=== PATIENT | female | born 1985 | race Caucasian/White ===

== ENCOUNTER 2021-12-20 06:10 | Inpatient (IN) | payer BC ==
[2021-12-20] MEDS ORDERED: CITRIC ACID-SODIUM CITRATE 15 ML CUP PO ONE (06:26)
[2021-12-20 07:16] LABS: Basophils % (A) 1 %; Eosinophils # (A) 0.2 k/uL (0-0.7); Eosinophils % (A) 2 %; HCT 33.8 % (34.0-46.0); HGB 11.4 gm/dL (11.4-16.0); Lymphocytes # (A) 1.2 k/uL (1.0-4.8); Lymphocytes % (A) 17 %; MCHC 33.7 g/dL (31.0-37.0); Mean Platelet Volume 7.4; Monocytes # (A) 0.5 k/uL (0-1.0); Monocytes % (A) 7 %; Neutrophils # (A) 5.1 k/uL (1.3-7.7); Neutrophils % (A) 72 %; Platelet Count 190 k/uL (150-450); RDW 13.1 % (11.5-15.5); WBC 7.1 k/uL (3.8-10.6)
[2021-12-20] MEDS: LACTATED RINGERS 1,000 ML IV SCH ×5 (07:35→20:36)
[2021-12-20] MEDS ORDERED: ONDANSETRON 4 MG/2 ML VIAL ONE (08:07)
[2021-12-20] MEDS ORDERED: NALBUPHINE 10 MG/ML (1 ML AMP) ONE (08:07)
[2021-12-20] MEDS ORDERED: PHENYLEPHRINE-0.9% NACL SYG 1,000 MCG/10 ML SYRINGE ONE (08:07)
[2021-12-20] MEDS ORDERED: OXYTOCIN 30 UNITS/500 ML NS BAG IV ONE (08:07)
[2021-12-20] MEDS ORDERED: MORPHINE SULFATE (PF) 0.3 MG/0.3 ML SYR ONE (08:07)
[2021-12-20] MEDS ORDERED: diphenhydrAMINE 50 MG/ML 1 ML VIAL IVP PRN ×2 (09:06)
[2021-12-20] MEDS ORDERED: NALOXONE 0.4 MG/ML 1 ML VIAL IV PRN ×2 (09:06→09:57)
[2021-12-20] MEDS ORDERED: ONDANSETRON 4 MG/2 ML VIAL IVP PRN (09:06)
[2021-12-20] MEDS ORDERED: METOCLOPRAMIDE 5 MG/ML 2 ML VIAL IVP PRN (09:06)
[2021-12-20] MEDS ORDERED: diphenhydrAMINE 50 MG CAP PO PRN (09:06)
[2021-12-20] MEDS ORDERED: diphenhydrAMINE 25 MG CAP PO PRN (09:06)
[2021-12-20] MEDS ORDERED: ZOLPIDEM 5 MG TAB PO PRN (09:06)
--- NOTE | 2021-12-20 09:13 | P.HPOB ---
History of Present Illness H&P Date: 12/20/21 Chief Complaint: IUP at 39 0/7 weeks, primary for breech 36-year-old 1 para 0 at 39-0/7 weeks, estimated due date of 12/27. Patient has a known breech presentation. Patient was counseled on needed C- section secondary to breech presentation. Patient also has been followed for small for gestational age with reassuring testing. Patient has a blo od type of A+, rubella status is immune, B surface antigen is negative, HIV negative, RPR is nonreactive, group beta strep cultures are negative. Review of Systems Constitutional: Denies chills, Denies fatigue, Denies fever Ears, nose, mouth and throat: Denies headache Cardiovascular: Denies leg edema Respiratory: Denies dyspnea Gastrointestinal: Denies constipation, Denies diarrhea, Denies nausea, Denies vomiting Genitourinary: Reports Past Medical History Past Medical History: Asthma History of Any Multi-Drug Resistant Organisms: None Reported Additional Past Surgical History / Comment(s): Leep procedure Past Anesthesia/Blood Transfusion Reactions: No Reported Reaction Past Psychological History: No Psychological Hx Reported Smoking Status: Never smoker Past Drug Use History: None Reported Medications and Allergies Home Medications Medication Instructions Recorded Confirmed Type Vit No.179/Iron/Folic 1 tab PO DAILY 12/20/21 12/20/21 History [ Tablet] Allergies Allergy/AdvReac Type Severity Reaction Status Date / Time No Known Allergies Allergy Verified 12/20/21 06:25 Exam Osteopathic Statement: *. No significant issues noted on an osteopathic structural exam other than those noted in the History and Physical/Consult. Vital Signs Temp Pulse Resp BP 12/20/21 06:24 97.7 F 72 16 112/70 Intake and Output 12/19/21 12/20/21 12/20/21 22:59 06:59 14:59 Other: Weight 58.967 kg Targeted physical exam is performed in this date and critical care physician a well-nourished well-developed female in no acute distress, breathing is noted to be nonlabored, heart has a regular rate and rhythm, abdomen is gravid and noted small for gestational age, cervical exam is deferred. position is confirmed to be in breech presentation with the ultrasound, heart tones returned be category 1 and she is wolfgang irregularly. Results Result Diagrams: 12/20/21 07:02 Abnormal Lab Results - Last 24 Hours (Table) 12/20/21 Range/Units 07:02 Hct 33.8 L (34.0-46.0) % Assessment and Plan (1) Term Current Visit: Yes Status: Acute Code(s): Z34.90 - ENCNTR FOR SUPRVSN OF NORMAL , UNSP, UNSP TRIMESTER SNOMED Code(s): 14251906 (2) Breech presentation Current Visit: Yes Status: Acute Code(s): O32.1XX0 - MATERNAL CARE FOR BREECH PRESENTATION, UNSP SNOMED Code(s): 5465181 Plan: 36-year-old 1 para 0 at 39-0/7 weeks that presents for due to breech presentation. Patient is counseled on need for secondary to presentation. Risks are reviewed and questions are answered. Patient was taken back for primary
[2021-12-20] MEDS ORDERED: OXYTOCIN 30 UNITS/500 ML NS 30 UNIT in SALINE 1 500ML.BAG IV SCH (09:15)
--- NOTE | 2021-12-20 09:17 | P.OP ---
Date of Procedure: 12/20/21 Preoperative Diagnosis: IUP at 39 and 0/7 weeks, breech presentation Postoperative Diagnosis: Same Procedure(s) Performed: Primary low transverse section Anesthesia: spinal Surgeon: Karla Rosa Gun Welder #1: Patricia Del Castillo Estimated Blood Loss (ml): 290 IV fluids (ml): 1,500 Urine output (ml): 200 Pathology: none sent Condition: stable Disposition: observation Indications for Procedure: Breech presentation Operative Findings: Viable male infant delivered at 8:30, weight of 6 lbs. 6 oz Normal uterus tubes and ovaries were appreciated, some anterior scarring of the bladder was appreciated Description of Procedure: Patient was taken back to the operating suite where spinal anesthesia was found be adequate. She was prepped and draped in the normal sterile fashion in the dorsal supine position. A Pfannenstiel incision was made with the scalpel and carried through the underlying layer of fascia. The fascia was then incised in the midline and extended laterally. The superior aspect of the fascial incision was then grasped yoni clamps, elevated and underlying rectus muscles were dissected off sharply. Attention was then turned to the inferior aspect of the fascial incision which was grasped yoni clamps, elevated and underlying rectus muscle was dissected off sharply. The rectus muscles were in the midline the peritoneum was identified and entered. The bladder blade was then inserted into the pelvis. The vesicouterine peritoneum was identified and the bladder flap was then created using sharp and blunt dissection some scarring was appreciated and this was taken with good visualization the bladder. The bladder blade was then reinserted. Hysterotomy incision was made the scalpel clear fluid was obtained and the infant was encountered in a tari breech presentation. The was then delivered in the usual fashion 20s cry was noted at . The cord is then doubly clamped and cut and the infant was handed off to awaiting RN. The placenta was then delivered manually and the uterus cleared of all clots and debris. Uterus was delivered from the abdomen and the hysterotomy incision was closed with 0 Vicryl in a running locked fashion. A second imbricating suture was performed. He was noted on the midportion of the uterine incision therefore a [id number] suture was used to obtain hemostasis. Uterus then returned to the abdomen and the gutters were cleared of all clots and debris. The hysterotomy incision was inspected and found be hemostatic. The peritoneum was then loosely reapproximated and the rectus muscles were inspected, any points of bleeding were made hemostatic with the Bovie. The fascia was then closed with 0 Vicryl in a running fashion from one lateral edge the other. Subcutaneous tissue was irrigated found to be hemostatic. The skin was closed with 4-0 Vicryl in a subarticular fashion. Steri-Strips and sterile dressings were applied. Uterus noted be firm and below the umbilicus after delivery. Patient and tolerated delivery well and are resting comfortably. All counts were correct 2 at the delivery.
[2021-12-20] MEDS ORDERED: MORPHINE SULFATE 2 MG/ML SYRINGE IVP PRN (09:57)
[2021-12-20] MEDS: ACETAMINOPHEN IV (For NPO) 1,000 MG in EMPTY BAG 1 BAG IVPB SCH ×2 (10:03→18:44)
[2021-12-20] MEDS: ACETAMINOPHEN TAB 500 MG TAB PO SCH ×2 (13:55→20:37)
[2021-12-20] MEDS: IBUPROFEN IV 800 MG in SODIUM CHLORIDE 0.9% 250 ML IV SCH (15:44)
[2021-12-20] MEDS: IBUPROFEN 600 MG TAB PO SCH ×2 (18:31→20:37)
[2021-12-20] MEDS: SENNOSIDES-DOCUSATE SODIUM 1 EACH TAB PO SCH (20:37)
[2021-12-21] MEDS: ACETAMINOPHEN TAB 500 MG TAB PO SCH ×4 (01:53→23:28)
[2021-12-21] MEDS: IBUPROFEN 600 MG TAB PO SCH ×4 (04:08→19:57)
[2021-12-21] MEDS: IBUPROFEN IV 800 MG in SODIUM CHLORIDE 0.9% 250 ML IV SCH ×3 (04:10)
[2021-12-21 06:28] LABS: Basophils % (A) 0 %; Eosinophils # (A) 0.2 k/uL (0-0.7); Eosinophils % (A) 2 %; HCT 31.3 % (34.0-46.0); HGB 10.4 gm/dL (11.4-16.0); Lymphocytes # (A) 1.1 k/uL (1.0-4.8); Lymphocytes % (A) 13 %; MCH 29.9 pg (25.0-35.0); MCHC 33.2 g/dL (31.0-37.0); MCV 89.9 fL (80.0-100.0); Mean Platelet Volume 7.9; Monocytes # (A) 0.5 k/uL (0-1.0); Monocytes % (A) 6 %; Neutrophils # (A) 6.6 k/uL (1.3-7.7); Neutrophils % (A) 77 %; Platelet Count 141 k/uL (150-450); RBC 3.49 m/uL (3.80-5.40); RDW 12.9 % (11.5-15.5); WBC 8.5 k/uL (3.8-10.6)
--- NOTE | 2021-12-21 08:31 | P.PNOBGPC ---
Subjective - Subjective Principal diagnosis: POD 1 LTCS breech Interval history: Patient is doing well postoperatively. She is ambulating and voiding without difficulty. She states her pain is controlled with ibuprofen and Tylenol. She is tolerating a regular diet without nausea or vomiting. She is breast-feeding without difficulty. She denies concerns this morning. Patient reports: Reports appetite normal, Reports voiding normally, Reports pain well controlled, Reports ambulating normally : doing well, nursing well Objective - Vital Signs Latest vital signs: Vital Signs Temp Pulse Pulse Resp BP Pulse Ox 12/21/21 07:54 97.9 F 58 L 16 112/59 12/21/21 04:00 98.0 F 77 16 112/70 12/21/21 00:00 98.2 F 78 15 125/56 12/20/21 20:00 98.4 F 69 18 106/69 12/20/21 18:00 18 12/20/21 16:00 16 12/20/21 15:49 98.1 F 61 16 121/73 99 12/20/21 14:57 99 12/20/21 14:00 18 12/20/21 12:57 18 12/20/21 10:59 59 L 16 96/60 99 12/20/21 10:57 61 16 99 12/20/21 10:30 96.7 F L 61 16 96/57 97 12/20/21 10:00 71 16 104/66 96 12/20/21 09:57 71 99 12/20/21 09:45 62 16 103/62 99 12/20/21 09:30 54 L 16 101/59 99 12/20/21 09:15 67 16 110/60 99 12/20/21 09:00 97.5 F L 55 L 16 105/64 99 Intake and Output 12/20/21 12/21/21 12/21/21 22:59 06:59 14:59 Output Total 1100 Balance -1100 Output: Urine 1100 Uretheral (Armstrong) 1100 Other: Voiding Method Indwelling Catheter - Exam Extremities: Present: normal, edema Abdomen: Present: normal appearance Incision: Present: intact Uterus: Present: normal, firm - Labs Labs: Abnormal Lab Results - Last 24 Hours (Table) 12/21/21 Range/Units 05:50 RBC 3.49 L (3.80-5.40) m/uL Hgb 10.4 L (11.4-16.0) gm/dL Hct 31.3 L (34.0-46.0) % Plt Count 141 L (150-450) k/uL Assessment and Plan (1) Term Current Visit: Yes Status: Acute Code(s): Z34.90 - ENCNTR FOR SUPRVSN OF NORMAL , UNSP, UNSP TRIMESTER SNOMED Code(s): 29377721 (2) Breech presentation Current Visit: Yes Status: Acute Code(s): O32.1XX0 - MATERNAL CARE FOR BREECH PRESENTATION, UNSP SNOMED Code(s): 3997494 (3) S/P section Current Visit: Yes Status: Acute Code(s): Z98.891 - HISTORY OF UTERINE SCAR FROM PREVIOUS SURGERY SNOMED Code(s): 723330846 Plan: 36-year-old G1 now P1 status post primary for breech presentation. Patient is doing well postoperatively plan to continue routine postoperative care and anticipate discharge home tomorrow.
--- NOTE | 2021-12-21 08:44 | P.PN ---
Progress Note - Text Progress Note Date: 12/21/21 POD 1 c section with spinal duramorph. doing well, pain controlled. pruritis yesterday, none today. able to ambulate, urinating, and passing flatus. no numbness/tingling in lower ext. Pain 3/10 with movement only.
[2021-12-22 02:54] VITALS: RESP 16
[2021-12-22] MEDS: SENNOSIDES-DOCUSATE SODIUM 1 EACH TAB PO SCH ×3 (05:05→09:53)
[2021-12-22] MEDS: IBUPROFEN 600 MG TAB PO SCH ×3 (05:15→12:36)
[2021-12-22] MEDS: ACETAMINOPHEN TAB 500 MG TAB PO SCH ×3 (08:51→13:35)
--- NOTE | 2021-12-22 08:57 | P.DS ---
Providers Date of admission: 12/20/21 06:10 Expected date of discharge: 12/22/21 Attending physician: Karla Rosa Primary care physician: Ellen Heart - Discharge Diagnosis(es) (1) Term Current Visit: Yes Status: Acute (2) Breech presentation Current Visit: Yes Status: Acute (3) S/P section Current Visit: Yes Status: Acute Hospital Course: This is a 36-year-old 1 now para 1 that presented to labor and delivery for primary secondary to breech presentation. For full details on this patient please see the dictated history and physical. Patient underwent without difficulty for full details on the please see the operative report. Patient delivered a liveborn male at 8:30 on 12/20 with a weight of 6 lbs. 6 oz. Patient's postoperative course has been uneventful. On this postoperative day #1 she is doing well. She is in bleeding and voiding without difficulty. Her pain is well-controlled with oral ibuprofen/Tylenol. Her lochia is minimal. She is breast and bottle feeding at this point. She would like discharge home today. Patient Condition at Discharge: Good Plan - Discharge Summary Discharge Rx Participant: No New Discharge Prescriptions: No Action Vit No.179/Iron/Folic [ Tablet] 1 tab PO DAILY Discharge Medication List Vit No.179/Iron/Folic [ Tablet] 1 tab PO DAILY 12/20/21 [History] Follow up Appointment(s)/Referral(s): Karla Rosa DO [Doctor of Osteopathic Medicine] - 2 Weeks Patient Instructions/Handouts: (DC), (GEN) Discharge Disposition: HOME SELF-CARE
[2021-12-22 09:51] VITALS: BP 93/50; PULSE 64; TEMP 98.1
[2021-12-22] MEDS: PRENATAL VIT-IRON-FOLIC ACID 1 EACH TABLET PO SCH (09:52)
[2021-12-22] MEDS: IBUPROFEN IV 800 MG in SODIUM CHLORIDE 0.9% 250 ML IV SCH (09:52)
== END 2021-12-22 14:05 | disposition home or self-care (01) | DRG 788 ==
LOC: 4FBP 06:10
PROVIDERS: ADMIT Obstetrics & Gynecology Obstetrics; ATTEND Obstetrics & Gynecology Obstetrics
PROC: 10D00Z1 Extraction of Products of Conception, Low, Open Approach (ICD-10-PCS; principal; 2021-12-20 08:00)
DX: O64.1XX0 Obstructed labor due to breech presentation, not applicable or unspecified (principal); J45.909 Unspecified asthma, uncomplicated; O99.52 Diseases of the respiratory system complicating childbirth; O36.5930 Maternal care for other known or suspected poor fetal growth, third trimester, not applicable or unspecified; Z37.0 Single live birth; Z3A.39 39 weeks gestation of pregnancy
CPT/HCPCS: 85025; 86850; 86900; 86901

== ENCOUNTER 2024-11-05 16:03 | Observation (INO) | payer BC ==
--- NOTE | 2024-11-05 16:40 | ED ---
Arrhythmia/Palpitations HPI - General Source: patient Mode of arrival: ambulatory Limitations: no limitations <Herb Preciado - Last Filed: 11/05/24 16:39> - General Source: patient, RN notes reviewed, old records reviewed Mode of arrival: ambulatory Limitations: no limitations - History of Present Illness MD Complaint: "skipped beats", palpitations -: hour(s) Context: occurred during rest Associated Symptoms: chest pain, shortness of breath, anxiety Treatments Prior to Arrival: other <Jai Carrillo - Last Filed: 11/05/24 21:51> - General Chief Complaint: Arrhythmia/Palpitations Stated Complaint: Palpatations Time Seen by Provider: 11/05/24 16:40 - History of Present Illness Initial Comments: Quick note: 39-year-old female presenting with chief complaint of dizziness. Patient states that she felt a tightness in her neck and had then followed by dizziness and some palpitations which prompted her to go to urgent care. Urgent care then prompted her to come to the ER. (Herb Preciado) This is a 39 female to ER for dizziness dizziness chest pain chest pain the neck tightness in the neck and chest pain where she went to the urgent care urgent care sent to the ER for abnormal EKG (Jai Carrillo) - Related Data Home Medications Medication Instructions Recorded Confirmed Vit No.179/Iron/Folic 1 tab PO DAILY 12/20/21 12/20/21 [ Tablet] Allergies Allergy/AdvReac Type Severity Reaction Status Date / Time No Known Allergies Allergy Verified 12/20/21 06:25 Review of Systems ROS Other: All systems not noted in ROS Statement are negative. <Herb Preciado - Last Filed: 11/05/24 16:39> ROS Other: All systems not noted in ROS Statement are negative. <Jai Carrillo - Last Filed: 11/05/24 21:51> ROS Statement: Those systems with pertinent positive or pertinent negative responses have been documented in the HPI. Past Medical History Past Medical History: Asthma History of Any Multi-Drug Resistant Organisms: None Reported Past Surgical History: Section Additional Past Surgical History / Comment(s): Leep procedure Past Anesthesia/Blood Transfusion Reactions: No Reported Reaction Past Psychological History: No Psychological Hx Reported Smoking Status: Never smoker Past Drug Use History: None Reported <Herb Preciado - Last Filed: 11/05/24 16:39> General Exam Limitations: no limitations <Herb Preciado - Last Filed: 11/05/24 16:39> General appearance: alert, in no apparent distress Head exam: Present: atraumatic, normocephalic, normal inspection Eye exam: Present: normal appearance, PERRL, EOMI. Absent: scleral icterus, conjunctival injection, periorbital swelling ENT exam: Present: normal exam, mucous membranes moist Neck exam: Present: normal inspection. Absent: tenderness, meningismus, lymphadenopathy Respiratory exam: Present: normal lung sounds bilaterally. Absent: respiratory distress, wheezes, rales, rhonchi, stridor Cardiovascular Exam: Present: regular rate, normal rhythm, normal heart sounds. Absent: systolic murmur, diastolic murmur, rubs, gallop, clicks GI/Abdominal exam: Present: soft, normal bowel sounds. Absent: distended, tenderness, guarding, rebound, rigid Extremities exam: Present: normal inspection, full ROM, normal capillary refill. Absent: tenderness, pedal edema, joint swelling, calf tenderness Back exam: Present: normal inspection Neurological exam: Present: alert, oriented X3, CN II-XII intact Psychiatric exam: Present: normal affect, normal mood Skin exam: Present: warm, dry, intact, normal color. Absent: rash <Jai Carrillo - Last Filed: 11/05/24 21:51> - General Exam Comments Initial Comments: Visual Physical Exam Vital signs reviewed General: Well-appearing, nontoxic, no acute distress. Head: Normocephalic, atraumatic Eyes: PERRLA, EOMI ENT: Airway patent Chest: Nonlabored breathing Skin: No visual rash, normal skin tone Neuro: Alert and oriented 3 Musculoskeletal: No gross abnormalities (Herb Preciado) Course <Jai Carrillo - Last Filed: 11/05/24 21:51> Vital Signs 11/05/24 11/05/24 16:32 19:58 Temperature 98.2 F 98.5 F Pulse Rate 62 93 Respiratory 20 16 Rate Blood Pressure 150/85 136/80 O2 Sat by Pulse 98 100 Oximetry - Reevaluation(s) Reevaluation #1: 11/05/24 21:50 Medical records reviewed (Jai Carrillo) Reevaluation #2: 11/05/24 21:50 Patient symptoms do appear improved here in the ER (Jai Carrillo) Reevaluation #3: 11/05/24 21:51 Patient informed of results and questions answered (Jai Carrillo) Reevaluation #4: Was pt. sent in by a medical professional or institution (ROGER Trammell, ORTHODONTIC TECHNICIAN, urgent care, hospital, or long-term...) When possible be specific @ -no Did you speak to anyone other than the patient for history (EMS, parent, family, police, friend...)? What history was obtained from this source @ -no Did you review nursing and triage notes (agree or disagree)? Why? @ -agree Are old charts reviewed (outside hosp., previous admission, EMS record, old EKG, old radiological studies, urgent care reports/EKG's, long-term records)? Report findings @ -yes Differential Diagnosis (chest pain, altered mental status, abdominal pain women, abdominal pain men, vaginal bleeding, weakness, fever, dyspnea, syncope, headache, dizziness, GI bleed, back pain, seizure, CVA, palpatations, mental health, musculoskeletal)? @ -prior EKG interpreted by me (3pts min.). @ -yes X-rays interpreted by me (1pt min.). @ -yes negative for acute disease CT interpreted by me (1pt min.). @ -no U/S interpreted by me (1pt. min.). @ -no What testing was considered but not performed or refused? (CT, X-rays, U/S, labs)? Why? @ -none What meds were considered but not given or refused? Why? @ -none Did you discuss the management of the patient with other professionals (professionals i.e. ROGER Trammell, ORTHODONTIC TECHNICIAN, lab, RT, psych nurse, director social, outsole beveler, teacher, airfield engineer officer, field case manager)? Give summary @ -no Was smoking cessation discussed for >3mins.? @ -no Was critical care preformed (if so, how long)? @ -no Were there social determinants of health that impacted care today? How? (Homelessness, low income, unemployed, alcoholism, drug addiction, transportation, low edu. Level, literacy, decrease access to med. care, intermediate, rehab)? @ -none Was there de-escalation of care discussed even if they declined (Discuss DNR or withdrawal of care, Hospice)? DNR status @ -no What co-morbidities impacted this encounter? (DM, HTN, Smoking, COPD, CAD, Cancer, CVA, ARF, Chemo, Hep., AIDS, mental health diagnosis, sleep apnea, morbid obesity)? @ -none Was patient admitted / discharged? Hospital course, mention meds given and route, prescriptions, significant lab abnormalities, going to OR and other pertinent info. @ - Undiagnosed new problem with uncertain prognosis? @ -no Drug Therapy requiring intensive monitoring for toxicity (Heparin, Nitro, Insulin, Cardizem)? @ -no Were any procedures done? @ -no Diagnosis/symptom? @ - Acute, or Chronic, or Acute on Chronic? @ -Acute Uncomplicated (without systemic symptoms) or Complicated (systemic symptoms)? @ -Complicated Side effects of treatment? @ -no Exacerbation, Progression, or Severe Exacerbation? @ -exacerbation Poses a threat to life or bodily function? How? (Chest pain, [place], [place], pneumonia, PE, COPD, DKA, ARF, appy, cholecystitis, CVA, Diverticulitis, Homicidal, Suicidal, threat to staff... and all critical care pts) @ -yes (Jai Carrillo) Reevaluation #5: Differential Chest Pain: Stable Angina, Unstable Angina, STEMI, NSTEMI Aortic Dissection, Pneumothorax, Musculoskeletal, Esophageal Spasm GERD, Cholecystitis, Pancreatitis, Zoster, this is not meant to be an all-inclusive list. (Jai Carrillo) Medical Decision Making <Herb Preciado - Last Filed: 11/05/24 16:39> - Lab Data Result diagrams: 11/05/24 16:51 - EKG Data -: EKG Interpreted by Me (Lateral T wave inversion) - Radiology Data Radiology results: report reviewed (Chest x-ray negative for acute disease), image reviewed <Jai Carrillo - Last Filed: 11/05/24 21:51> - Medical Decision Making I performed the quick note portion of this visit, electronically signed Herb Preciado PA-C (Herb Preciado) 39 female to be admitted for EKG changes T wave inversion chest pain, elevated troponin with troponin leak (Jai Carrillo) - Lab Data Lab Results 11/05/24 11/05/24 11/05/24 Range/Units 16:51 16:51 16:51 WBC 10.57 H (4.50-10.00) 10*3/uL RBC 4.86 (4.10-5.20) 10*6/uL Hgb 14.0 (12.0-15.0) g/dL Hct 42.1 (37.2-46.3) % MCV 86.6 (80.0-97.0) fL MCH 28.8 (27.0-32.0) pg MCHC 33.3 (32.0-37.0) g/dL Plt Count 240 (140-440) 10*3/uL MPV 9.4 L (9.5-12.2) fL Immature Gran % (Auto) 0.2 % Neutrophils % 83.3 % Lymphocytes % 10.9 % Monocytes % 3.9 % Eosinophils % 0.9 % Basophils % 0.8 % Immature Gran # 0.02 (0.00-0.04) 10*3/uL Neutrophils # 8.81 H (1.80-7.70) 10*3/uL Lymphocytes # 1.15 (0.90-5.00) 10*3/uL Monocytes # 0.41 (0.20-1.00) 10*3/uL Eosinophils # 0.10 (0.04-0.35) 10*3/uL Basophils # 0.08 (0.00-0.10) 10*3/uL PT 10.6 (10.0-12.5) sec INR 1.0 (<1.2) APTT 22.3 (22.0-30.0) sec Troponin I 0.024 (0.000-0.034) ng/mL Urine Color Urine Appearance (Clear) Urine pH (5.0-8.0) Ur Specific [place] (1.001-1.035) Urine Protein (Negative) Urine Glucose (UA) (Negative) Urine Ketones (Negative) Urine Blood (Negative) Urine Nitrite (Negative) Urine Bilirubin (Negative) Urine Urobilinogen (<2.0) mg/dL Ur Leukocyte Esterase (Negative) Urine HCG, Qual (Not Detectd) 11/05/24 11/05/24 Range/Units 16:53 18:15 WBC (4.50-10.00) 10*3/uL RBC (4.10-5.20) 10*6/uL Hgb (12.0-15.0) g/dL Hct (37.2-46.3) % MCV (80.0-97.0) fL MCH (27.0-32.0) pg MCHC (32.0-37.0) g/dL Plt Count (140-440) 10*3/uL MPV (9.5-12.2) fL Immature Gran % (Auto) % Neutrophils % % Lymphocytes % % Monocytes % % Eosinophils % % Basophils % % Immature Gran # (0.00-0.04) 10*3/uL Neutrophils # (1.80-7.70) 10*3/uL Lymphocytes # (0.90-5.00) 10*3/uL Monocytes # (0.20-1.00) 10*3/uL Eosinophils # (0.04-0.35) 10*3/uL Basophils # (0.00-0.10) 10*3/uL PT (10.0-12.5) sec INR (<1.2) APTT (22.0-30.0) sec Troponin I (0.000-0.034) ng/mL Urine Color Colorless Urine Appearance Clear (Clear) Urine pH 6.0 (5.0-8.0) Ur Specific [place] 1.010 (1.001-1.035) Urine Protein Negative (Negative) Urine Glucose (UA) Negative (Negative) Urine Ketones Negative (Negative) Urine Blood Negative (Negative) Urine Nitrite Negative (Negative) Urine Bilirubin Negative (Negative) Urine Urobilinogen <2.0 (<2.0) mg/dL Ur Leukocyte Esterase Negative (Negative) Urine HCG, Qual Not Detected (Not Detectd) Critical Care Time Critical Care Time: Yes Total Critical Care Time: 31 <Jai Carrillo - Last Filed: 11/05/24 21:51> Disposition <Herb Preciado - Last Filed: 11/05/24 16:39> Is patient prescribed a controlled substance at d/c from ED?: No Time of Disposition: 19:40 <Jai Carrillo - Last Filed: 11/05/24 21:51> Clinical Impression: Tachycardia, Palpitations, Chest pain Disposition: ADMITTED IP TO THIS HOSP Condition: Fair
[2024-11-05 17:01] LABS: Basophils # (A) 0.08 10*3/uL (0.00-0.10); Basophils % (A) 0.8 %; Eosinophils # (A) 0.10 10*3/uL (0.04-0.35); Eosinophils % (A) 0.9 %; HCT 42.1 % (37.2-46.3); HGB 14.0 g/dL (12.0-15.0); Lymphocytes # (A) 1.15 10*3/uL (0.90-5.00); Lymphocytes % (A) 10.9 %; MCH 28.8 pg (27.0-32.0); MCHC 33.3 g/dL (32.0-37.0); MCV 86.6 fL (80.0-97.0); Monocytes # (A) 0.41 10*3/uL (0.20-1.00); Monocytes % (A) 3.9 %; Neutrophils # (A) 8.81 10*3/uL (1.80-7.70); Neutrophils % (A) 83.3 %; Platelet Count 240 10*3/uL (140-440); RBC 4.86 10*6/uL (4.10-5.20); RDW 11.9 % (11.5-14.5); WBC 10.57 10*3/uL (4.50-10.00)
--- NOTE | 2024-11-05 17:17 | XR ---
EXAMINATION TYPE: XR chest 2V DATE OF EXAM: 11/05/2024 5:01 PM COMPARISON: Chest radiographs from 11/05/2024 CLINICAL INDICATION: Female, 39 years old with history of dysrhythmia; TECHNIQUE: XR chest 2V Frontal and lateral views of the chest. FINDINGS: Lungs/Pleura: There is no evidence of pleural effusion, focal consolidation, or pneumothorax. Pulmonary vascularity: Unremarkable. Heart/mediastinum: Cardiomediastinal silhouette is unremarkable. Musculoskeletal: No acute osseous pathology. Other findings: None IMPRESSION: No acute cardiopulmonary disease/process. [facility], , 11/05/2024 5:15 PM
[2024-11-05 17:37] LABS: INR 1.0 (<1.2); Partial Thromboplastin Time 22.3 sec (22.0-30.0); Prothrombin Time 10.6 sec (10.0-12.5)
[2024-11-05 18:36] LABS: Bilirubin,Urine Negative (Negative); Blood,Urine Negative (Negative); Color,Urine Colorless; Glucose,Urine (UA) Negative (Negative); Ketones,Urine Negative (Negative); Leukocyte Esterase,Urine Negative (Negative); Nitrite,Urine Negative (Negative); PH, Urine 6.0 (5.0-8.0); Protein,Urine Negative (Negative); Specific Gravity,Urine 1.010 (1.001-1.035); Urobilinogen,Urine <2.0 mg/dL (<2.0)
[2024-11-05] MEDS ORDERED: NITROGLYCERIN SL TABS 0.4 MG TAB SUBLINGUAL PRN (19:45)
[2024-11-05] MEDS ORDERED: MORPHINE SULFATE 4 MG/ML SYRINGE IV PRN (19:45)
--- NOTE | 2024-11-05 21:47 | CT ---
EXAMINATION TYPE: CT angio chest DATE OF EXAM: 11/05/2024 9:19 PM COMPARISON: Chest radiograph 11/05/2024. CLINICAL INDICATION: Female, 39 years old with history of PE; palpatations to chest with dizziness. s tarted at 1300 no chest tightness no sob., skin w/d cap refill brisk TECHNIQUE/CONTRAST: CTA scan of the thorax is performed with IV Contrast, patient injected with 100ml mL of Isovue 370, M IP images are created and reviewed these are created on a separate workstation.. CT DLP: 179.2 mGycm, Automated exposure control for dose reduction was used. FINDINGS: Pulmonary Artery: There is no evidence for a filling defect within the pulmonary vasculature to sugge st acute pulmonary embolism. The pulmonary artery is of normal size. Lungs/Pleura: No evidence of focal consolidation, pleural effusion or pneumothorax. Airway: Large airways are patent. Heart: Heart is within normal limits for size. Vasculature: No evidence of aortic aneurysm. Mediastinum: No gross evidence of adenopathy. Musculoskeletal: No acute osseous abnormalities Soft Tissues/lymph nodes: Unremarkable. Lower neck: No significant findings. Upper Abdomen: No significant findings. IMPRESSION: No evidence of acute pulmonary embolism or acute pulmonary pathology. [facility], , 11/05/2024 9:44 PM
[2024-11-05] MEDS: METOPROLOL TARTRATE 25 MG TAB PO SCH (22:17)
[2024-11-05] MEDS: SODIUM CHLORIDE 0.9% 1,000 ML IV ONE (22:17)
[2024-11-05] MEDS: ASPIRIN 81 MG PO STA (22:17)
[2024-11-05] MEDS: HEPARIN SODIUM 1,000 UN/ML (10ML VL) IV ONE (22:19)
[2024-11-05] MEDS: HEPARIN SODIUM,PORCINE/D5W 25,000 UNIT in EMPTY BAG 1 BAG IV SCH (22:22)
[2024-11-05 22:32] LABS: ALT 23 U/L (4-34); AST 24 U/L (14-36); African American GFR (CKD) >90 (>60 ml/min/1.73 sqM); Albumin 5.1 g/dL (3.5-5.0); Alkaline Phosphatase 32 U/L (38-126); Anion Gap 12 mmol/L; Blood Urea Nitrogen 14 mg/dL (7-17); Calcium 9.8 mg/dL (8.4-10.2); Carbon Dioxide 24 mmol/L (22-30); Chloride 101 mmol/L (98-107); Glucose 120 mg/dL (74-99); Magnesium 2.0 mg/dL (1.6-2.3); Non-African American GFR(CKD) >90 (>60 ml/min/1.73 sqM); Potassium 3.9 mmol/L (3.5-5.1); Sodium 137 mmol/L (137-145); Total Protein 8.2 g/dL (6.3-8.2)
[2024-11-05 22:40] LABS: NT-Pro-B-Type Natriuretic Pept 192 pg/mL
[2024-11-06 03:42] LABS: Platelet Count 205 10*3/uL (140-440)
[2024-11-06 08:13] LABS: Cholesterol 142.00 mg/dL (0.00-200.00); HDL Cholesterol 82.70 mg/dL (40.00-60.00); LDL Cholesterol,Calculated 47.8 mg/dL (0.0-131.0); Triglycerides 57.70 mg/dL (0.00-149.00); VLDL Calculation 11.54 mg/dL (5.00-40.00)
[2024-11-06] MEDS ORDERED: ASPIRIN 325 MG TAB PO SCH (09:00)
--- NOTE | 2024-11-06 09:56 | P.CRDCN ---
History of Present Illness History of present illness: HISTORY OF PRESENT ILLNESS: This is a 39-year-old female with no significant past medical history. 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 We have been asked to see the patient in co nsultation for chest pain. Patient examined at the bedside. Patient states yesterday she started to have pressure into her neck that radiated into her head. She states it felt like somebody was squeezing on her neck. She states that she thought she was going to pass out. She does report having some palpitations at that time. She states the symptoms lasted for about an hour and then slowly went away on its own. She states that she was not doing anything when her symptoms started. She denied having any chest pain or pressure. She states that she has not had these symptoms before. She states that she has a 2-year-old at home and is normally very physically active without any symptoms. She denies any chest pain or pressure at the time of examination. She denies any known history of CAD. She is a non-smoker. DIAGNOSTICS: - EKG reveals sinus mechanism with nonspecific ST-T wave changes. - Chest xray negative for acute process - Chest CTA: Negative for pulmonary embolism - Laboratory data: Troponin negative x 3 - Current home cardiac medications include none. - No previous echocardiogram, stress test, or cardiac catheterization available in EMR for review REVIEW OF SYSTEMS: At the time of my exam: CONSTITUTIONAL: Denies fever or chills. HEENT: Denies blurred vision, vision changes, or eye pain. Denies hemoptysis CARDIOVASCULAR: Denies chest pain. Denies orthopnea. Denies PND. Denies palpitations RESPIRATORY: Denies shortness of breath. GASTROINTESTINAL: Denies abdominal pain. Denies nausea or vomiting. HEMATOLOGIC: Denies bleeding disorders. GENITOURINARY: Denies any blood in urine. SKIN: Denies pruitis. Denies rash. PHYSICAL EXAM: VITAL SIGNS: Reviewed. GENERAL: Well-developed in no acute distress. HEENT: Head is normocephalic. Pupils are equal, round. Sclerae anicteric. Mucous membranes of the mouth are moist. Neck supple. No JVD or thyromegaly LUNGS: Respirations even and unlabored. Lungs essentially clear to auscultation bilaterally. HEART: Regular rate and rhythm. S1 and S2 heard. ABDOMEN: Soft. Nondistended. Nontender. EXTREMITIES: Normal range of motion. No clubbing or cyanosis. Peripheral pulses intact. No lower extremity edema NEUROLOGIC: Awake and alert. Oriented x 3. ASSESSMENT: Neck pain and headache, atypical chest pain, troponin negative x 3 PLAN: An acute coronary event has been ruled out Discontinue IV heparin Discontinue metoprolol Obtain 2D echo to assess cardiac structure and function Patient to undergo stress echocardiogram today If negative, patient may be discharged home from a cardiac standpoint Nurse practitioner note has been reviewed by physician. Signing provider agrees with the documented findings, assessment, and plan of care documented by GASTROENTEROLOGY TECHNICIAN as a scribe. Past Medical History Past Medical History: Asthma History of Any Multi-Drug Resistant Organisms: None Reported Past Surgical History: Section Additional Past Surgical History / Comment(s): Leep procedure Past Anesthesia/Blood Transfusion Reactions: No Reported Reaction Past Psychological History: No Psychological Hx Reported Smoking Status: Never smoker Past Drug Use History: None Reported Medications and Allergies Home Medications Medication Instructions Recorded Confirmed Type Vit No.179/Iron/Folic 1 tab PO DAILY 12/20/21 12/20/21 History [ Tablet] Allergies Allergy/AdvReac Type Severity Reaction Status Date / Time No Known Allergies Allergy Verified 12/20/21 06:25 Physical Exam Vitals: Vital Signs Temp Pulse Pulse Resp BP BP Pulse Ox 11/06/24 03:28 77 105/65 11/06/24 02:00 98.0 F 55 L 16 92/52 99 11/05/24 23:48 99.2 F 57 L 16 131/83 98 11/05/24 22:24 98.9 F 64 18 122/89 100 11/05/24 22:01 68 11/05/24 21:58 98.9 F 95 18 135/102 100 11/05/24 19:58 98.5 F 93 16 136/80 100 11/05/24 16:32 98.2 F 62 20 150/85 98 Intake and Output 11/05/24 11/06/24 11/06/24 22:59 06:59 14:59 Other: Weight 49.895 kg 49.895 kg Results 11/06/24 03:03 11/05/24 21:45 Cardiac Enzymes 11/05/24 11/05/24 11/05/24 Range/Units 16:51 21:45 21:45 AST 24 (14-36) U/L Troponin I 0.024 <0.012 (0.000-0.034) ng/mL 11/06/24 Range/Units 03:03 AST (14-36) U/L Troponin I <0.012 (0.000-0.034) ng/mL Coagulation 11/05/24 11/05/24 11/06/24 Range/Units 16:51 21:45 03:03 PT 10.6 (10.0-12.5) sec APTT 22.3 22.8 43.4 H (22.0-30.0) sec 11/06/24 Range/Units 08:30 PT (10.0-12.5) sec APTT 38.2 H (22.0-30.0) sec Lipids 11/06/24 Range/Units 03:03 Triglycerides 57.70 (0.00-149.00) mg/dL Cholesterol 142.00 (0.00-200.00) mg/dL HDL Cholesterol 82.70 H (40.00-60.00) mg/dL Cholesterol/HDL Ratio 1.72 Ratio CBC 11/05/24 11/06/24 Range/Units 16:51 03:03 WBC 10.57 H (4.50-10.00) 10*3/uL RBC 4.86 (4.10-5.20) 10*6/uL Hgb 14.0 (12.0-15.0) g/dL Hct 42.1 (37.2-46.3) % Plt Count 240 205 (140-440) 10*3/uL Comprehensive Metabolic Panel 11/05/24 Range/Units 21:45 Sodium 137 (137-145) mmol/L Potassium 3.9 (3.5-5.1) mmol/L Chloride 101 (98-107) mmol/L Carbon Dioxide 24 (22-30) mmol/L BUN 14 (7-17) mg/dL Creatinine 0.75 (0.52-1.04) mg/dL Glucose 120 H (74-99) mg/dL Calcium 9.8 (8.4-10.2) mg/dL AST 24 (14-36) U/L ALT 23 (4-34) U/L Alkaline Phosphatase 32 L (38-126) U/L Total Protein 8.2 (6.3-8.2) g/dL Albumin 5.1 H (3.5-5.0) g/dL Current Medications Generic Name Dose Route Start Last Admin Trade Name Freq PRN Reason Stop Dose Admin Metoprolol Tartrate 25 mg 11/05/24 21:00 11/05/24 22:17 Metoprolol Tartrate 25 Mg Tab PO 25 mg BID JUNIOR Administration Morphine Sulfate 4 mg 11/05/24 19:45 Morphine Sulfate 4 Mg/Ml Syringe IV Q4HR PRN Chest Pain Nitroglycerin 0.4 mg 11/05/24 19:45 Nitroglycerin Sl Tabs 0.4 Mg Tab SUBLINGUAL Q5M PRN Chest Pain Intake and Output 11/05/24 11/06/24 11/06/24 22:59 06:59 14:59 Other: Weight 49.895 kg 49.895 kg 11/06/24 03:03 11/05/24 21:45
--- NOTE | 2024-11-06 12:59 | CA ---
Transthoracic Echo Report Name: Clover Lam Age: 39 Gender: F : 1985 Exam Date: 11/06/2024 10:20 Exam Location: [facility] Ht (in): 60 Wt (lb): 110 Ordering Physician: Jai Carrillo DO Attending/Referring Phys: [id number], Gerardo Talent Engineer Alyssa Diallo RDCS Procedure CPT: Indications: CP Cardiac Hx: Technical Quality: Fair Contrast 1: Total Dose (mL): Contrast 2: Total Dose (mL): MEASUREMENTS (Male / Female) Normal Values 2D ECHO LV Diastolic Diameter PLAX 3.8 cm 4.2 - 5.9 / 3.9 - 5.3 cm LV Systolic Diameter PLAX 2.3 cm IVS Diastolic Thickness 1.0 cm 0.6 - 1.0 / 0.6 - 0.9 cm LVPW Diastolic Thickness 1.0 cm 0.6 - 1.0 / 0.6 - 0.9 cm LV Relative Wall Thickness 0.5 RV Internal Dim ED PLAX 2.7 cm LA Systolic Diameter LX 2.8 cm 3.0 - 4.0 / 2.7 - 3.8 cm LV Diastolic Volume MOD 4C 71.4 cm??? LV Systolic Volume MOD 4C 34.9 cm??? LV Ejection Fraction MOD 4C 51.2 % LV Cardiac Index MOD 4C 2307.6 cm???/min???m??? LV Diastolic Length 4C 7.9 cm LV Systolic Length 4C 6.4 cm LV Diastolic Volume MOD 2C 79.8 cm??? LV Systolic Volume MOD 2C 27.8 cm??? LV Ejection Fraction MOD 2C 65.2 % LV Cardiac Index MOD 2C 3285.8 cm???/min???m??? LV Diastolic Length 2C 6.6 cm LV Systolic Length 2C 5.2 cm M-MODE Aortic Root Diameter MM 2.5 cm AV Cusp Separation MM 1.9 cm DOPPLER AV Peak Velocity 119.6 cm/s AV Peak Gradient 5.7 mmHg Mitral E Point Velocity 120.9 cm/s Mitral A Point Velocity 51.9 cm/s Mitral E to A Ratio 2.3 MV Deceleration Time 181.5 ms MV E' Velocity 12.9 cm/s Mitral E to MV E' Ratio 9.3 TR Peak Velocity 216.0 cm/s TR Peak Gradient 18.7 mmHg Right Ventricular Systolic Press 28.7 mmHg FINDINGS Left Ventricle Left ventricular ejection fraction is estimated at 55-60 %. Small left ventricular cavity. Left ventricular wall thickness normal. Normal left ventricular wall motion. Right Ventricle Normal right ventricular size. Right ventricular systolic pressure within normal limits. Right Atrium Normal right atrial size. No right atrial thrombus or mass seen. Left Atrium Normal left atrial size. No left atrial thrombus or mass present. Mitral Valve Structurally normal mitral valve. No evidence for mitral valve prolapse. No mitral stenosis. Mild mitral regurgitation. Aortic Valve Trileaflet aortic valve. No aortic valve stenosis or regurgitation. Tricuspid Valve Structurally normal tricuspid valve. Mild tricuspid regurgitation. Pulmonic Valve Pulmonic valve not well visualized. No pulmonic regurgitation. Pericardium No pericardial effusion. Aorta Normal size aortic root and proximal ascending aorta. CONCLUSIONS 1. Normal left ventricular size and systolic function 2. Mild mitral and tricuspid regurgitation Previewed by: Dr. Kajal Hodge MD (Electronically Signed) Final Date: 06 November 2024 12:58
--- NOTE | 2024-11-06 19:13 | CA ---
Stress Echo Report Clover Lam Age: 39 Gender: F : 1985 Exam Date: 11/06/2024 12:26 Exam Location: [facility] Ht (in): 61 Wt (lb): 110 Ordering Physician: Sanam Ng Referring Physician: [id number] Tax Commissioner: Mynor Rodriguez RDCS Technologist Procedure CPT: Indication: CP, palp ICD-9 Codes: Rhythm: Patient History: PALPITATIONS, FAMILY HX OF HEART DISEASE Cardiac Medications: SEE CHART,,,,, Medications in past 24 hours: Contrast: Definity Stress Results Protocol: Zenon Total dose(mL): 2 Exercise Duration (min:sec): 10:[address] Depression (mm): Angina Score: Huizar Score: METS: 11.7 Resting HR: 73 Resting BP: 127 / 81 Peak HR: 163 Peak BP: 183 / 78 Max Predicted HR: 179 91 % Max Predicted HR Target HR: 152 Double Product: [id number] Stress Summary: BP Response: Reason for Termination: MAX EXERTION/TARGET HR Cardiac Symptoms: NO SYMPTOMS ECG Analysis Resting ECG: Normal sinus rhythm, Resting ST/T wave changes Stress ECG: Exaggeration of the baseline ST abnormality Arrhythmia: None Echo Analysis Resting Echo: Normal resting echocardiogram. Peak Echo Analysis: Normal wall thickening and motion with decrease in the cavity size MEASUREMENTS (Male/Female) Normal Values CONCLUSIONS 1. Good exercise tolerance 2. Nondiagnostic electrocardiographic stress testing 3. Normal stress echocardiogram with no evidence of stress- induced ischemia Dr. Kajal Hodge MD (Electronically Signed) Final Date: 06 November 2024 19:12
--- NOTE | 2024-11-07 01:26 | HP ---
HISTORY AND PHYSICAL Combined History And Physical And Discharge Summary. CHIEF COMPLAINTS: Pressure in the neck as well as head pressure. HISTORY OF PRESENT ILLNESS: This 39-year-old woman with a past medical history of asthma, is complaining of neck pressure and as of somebody is squeezing the neck as well as has head pressure and the patient came to [facility]. Cardiology performed stress test. The stress test report is pending at this time. EKG did not show acute abnormality. The stress test is a normal. The patient will be discharged with further plans to followup in the outpatient setting. There is no history of fever, rigors, or chills. PAST MEDICAL HISTORY: History of asthma. Rest of the history and the chart is also reviewed. ALLERGIES: None. MEDICATIONS: None. FAMILY HISTORY: No history of heart disease or stroke in the family. SOCIAL HISTORY: No history of smoking or alcohol. REVIEW OF SYSTEMS: A 14-point review of systems negative except as mentioned earlier. PHYSICAL EXAMINATION: VITAL SIGNS: Pulse is 77, blood pressure 105/69, and respirations 16. HEENT: Conjunctivae normal. NECK: No jugular venous distention. CARDIOVASCULAR: S1, S2. RESPIRATIONS: Breath sounds diminished at the bases. ABDOMEN: Soft, nontender LEGS: No edema. NERVOUS SYSTEM: No focal deficits. LABORATORY DATA: WBC 10.57. Rest of the labs are noted. ASSESSMENT: 1. Neck pressure, rule out coronary artery disease, awaiting a stress test. 2. History of asthma. 3. History of section. RECOMMENDATIONS: This 39-year-old woman presented with multiple symptomatology at this time. Myocardial infarction has been ruled out. Cardiology is performing a stress test. If the stress test is okay, the patient can be discharged home with further plans to follow up with the primary physician as well as Cardiology in the outpatient setting. Please refer to the medication reconciliation sheet for list of medications. MMODL / IJN: [id number] /
[2024-11-07 10:12] VITALS: BP 96/56; PULSE 50; RESP 16; TEMP 97.6
--- NOTE | 2024-11-07 12:35 | P.PN ---
Subjective HISTORY OF PRESENT ILLNESS: This is a 39-year-old female with no significant past medical history. 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 We have been asked to see the patient in consultation for chest pain. Patient examined at the bedside. Patient states yesterday she started to have pressure into her neck that radiated into her head. She states it felt like somebody was squeezing on her neck. She states that she thought she was going to pass out. She does report having some palpitations at that time. She states the symptoms lasted for about an hour and then slowly went away on its own. She states that she was not doing anything when her symptoms started. She denied having any chest pain or pressure. She states that she has not had these symptoms before. She states that she has a 2-year-old at home and is normally very physically active without any symptoms. She denies any chest pain or pressure at the time of examination. She denies any known history of CAD. She is a non-smoker. DIAGNOSTICS: - EKG reveals sinus mechanism with nonspecific ST-T wave changes. - Chest xray negative for acute process - Chest CTA: Negative for pulmonary embolism - Laboratory data: Troponin negative x 3 - Current home cardiac medications include none. - No previous echocardiogram, stress test, or cardiac catheterization available in EMR for review 11/07/2024 Patient examined this morning at bedside. Patient underwent stress echocardiogram yesterday which was negative for ischemia. Echocardiogram completed revealing ejection fraction 55 to 60%, mild mitral and tricuspid regurgitation. Vital signs are stable. PHYSICAL EXAM: VITAL SIGNS: Reviewed. GENERAL: Well-developed in no acute distress. HEENT: Head is normocephalic. Pupils are equal, round. Sclerae anicteric. Mucous membranes of the mouth are moist. Neck supple. No JVD or thyromegaly LUNGS: Respirations even and unlabored. Lungs essentially clear to auscultation bilaterally. HEART: Regular rate and rhythm. S1 and S2 heard. ABDOMEN: Soft. Nondistended. Nontender. EXTREMITIES: Normal range of motion. No clubbing or cyanosis. Peripheral pulses intact. No lower extremity edema NEUROLOGIC: Awake and alert. Oriented x 3. ASSESSMENT: Neck pain and headache, atypical chest pain, troponin negative x 3 PLAN: Patient is stable from a cardiac standpoint with no further inpatient recommendations Patient may be discharged home today from a cardiac standpoint Nurse practitioner note has been reviewed by physician. Signing provider agrees with the documented findings, assessment, and plan of care documented by ROD WELDER as a scribe. Objective - Vital Signs Vital signs: Vital Signs Temp 97.6 F 11/07/24 07:00 Pulse 50 L 11/07/24 07:00 Resp 16 11/07/24 07:00 BP 96/56 11/07/24 07:00 Pulse Ox 99 11/07/24 07:00 FiO2 Intake & Output 11/06/24 11/07/24 11/07/24 18:59 06:59 18:59 Intake Total 200 175 Balance 200 175 Intake: Oral 200 175 Other: # Voids 1 1 # Bowel Movements 0 - Labs CBC & Chem 7: 11/06/24 03:03 11/05/24 21:45
--- NOTE | 2024-11-10 11:40 | P.DS ---
Providers Date of admission: 11/05/24 19:46 Expected date of discharge: 11/06/24 Attending physician: Sarahy Angel Consults: 11/05/24 19:45 Consult Physician Routine Consulting Provider: Kajal Hodge Consult Reason/Comments: cp,palps Do you want consulting provider notified?: Yes Primary care physician: Ellen Heart Hospital Course: Final diagnosis Chest pain, ruled out ACS Neck pressure, ruled out coronary artery disease, stress test negative History of asthma, not in exacerbation GI prophylaxis DVT prophylaxis Full code Discharge disposition Patient is being discharged in a stable condition with guarded prognosis to home. Patient will follow-up with Dr. Heart in the outpatient setting upon discharge. Patient is to continue with current medications and outpatient follow-up with cardiology as scheduled. Total time taken is greater than 35 minutes. Hospital course This is a 39-year-old female who was recently admitted with chest pain along with associated neck pain and head pressure. Patient evaluated by cardiology underwent stress test which was negative although stress test was not read until later in the evening and per nursing staff they were instructed not to discharge until cleared by cardiology. Patient was reevaluated by cardiology this morning and has been cleared for discharge recommending outpatient follow-up. Please refer to consultation notes for further HPI. Currently no reports of chest pain, shortness of breath, or palpitations. Patient is afebrile. No reports of nausea or vomiting and patient is tolerating diet. Patient will be discharged home today. Physical exam: Gen: This is a 39-year-old female who is awake, alert and oriented x 3, well- developed, well-nourished HEENT: Head is atraumatic, normocephalic. Pupils equal, round. Sclerae is anicteric. NECK: Supple. No JVD. No lymphadenopathy. No thyromegaly. LUNGS: Diminished breath sounds bilaterally otherwise clear to auscultation. No wheezes or rhonchi. No intercostal retractions. HEART: S1, S2 are muffled ABDOMEN: Soft. Bowel sounds are present. No masses. No tenderness. EXTREMITIES: No pedal edema. No calf tenderness. NEUROLOGICAL: Patient is awake, alert and oriented x3. Cranial nerves 2 through 12 are grossly intact. Please refer to medication reconciliation sheet for a list of medications. The impression and plan of care has been dictated by Neeta Osman, Nurse Practitioner as directed. Dr. Stanley MD I have performed a history and examination and MDM of this patient, discussed the same with the dictator, and agree with the dictator's assessment and plan as written ,documented as a scribe. Based on total visit time, I have performed more than 50% of the visit. Patient Condition at Discharge: Fair Plan - Discharge Summary New Discharge Prescriptions: Continue No Known Home Medications Discharge Medication List No Known Home Medications 11/06/24 [History] Follow up Appointment(s)/Referral(s): Ellen Heart DO [Primary Care Provider] - 1-2 days Kajal Hodge MD [STAFF PHYSICIAN] - 1 Week Activity/Diet/Wound Care/Special Instructions: Activity limited until follow-up Follow-up with primary care provider on discharge Follow-up with cardiology outpatient Continue heart healthy diet Discharge Disposition: HOME SELF-CARE
== END 2024-11-07 10:27 | disposition home or self-care (01) ==
LOC: EC 16:03 → 1SOBS 19:46
PROVIDERS: ADMIT Hospitalist; ATTEND Hospitalist
DX: R07.89 Other chest pain (principal); R00.0 Tachycardia, unspecified; R94.31 Abnormal electrocardiogram [ECG] [EKG]; R00.2 Palpitations; M54.2 Cervicalgia; R79.89 Other specified abnormal findings of blood chemistry; R51.9 Headache, unspecified; R55 Syncope and collapse; F41.9 Anxiety disorder, unspecified; I08.1 Rheumatic disorders of both mitral and tricuspid valves; J45.909 Unspecified asthma, uncomplicated; Z98.891 History of uterine scar from previous surgery
CPT/HCPCS: 96366; 96376; 96365; 99291; 36415; 93005; 93306; 93351; 83880; 80061; 80053; 83735; 84443; 84484 ×2; 85025; 85049; 85610; 85730 ×2; 81003; 81025; 71046; 71275; G0378 ×3; J1644 ×2; Q9967